=== PATIENT | female | born 1990 | race Caucasian/White ===

== ENCOUNTER 2020-10-14 21:00 | Inpatient (IN) | payer OTHER, SELFPAY ==
[2020-10-14] VITALS (50 sets, daily range): BP systolic 81–132; BP diastolic 41–97; PULSE 81–139; O2SAT 99–100; BMI 25.8
--- OUTSIDE RECORDS SUMMARY | 2020-10-14 21:24 | XMS_ITS | Encounter Summary ---
:1990 Author Care Team Providers Name Role Phone Loc Silva MD Primary Care Provider [phone] Reason for Visit OB visit Assessment and Plan 1. Routine care Discussion Note: None recorded.Patient educational handouts: No information available. Plan of Care Reminders Provider Appointments Ob Routine Kelly Jimenez, 10/15/2020 CNM 3:30PM ? Ob Routine Kirsten healy 10/22/2020 MD Neeraj 3:30PM ? Ob Routine Bozena Jimenez, 10/29/2020 CNM 3:30PM ? Ob Routine Bozena Jimenez, 11/05/2020 CNM 3:30PM Lab None ? ? recorded. Referral None ? ? recorded. Procedures None ? ? recorded. Surgeries None ? ? recorded. Imaging None ? ? recorded. Medications Name Start Date ? ? ? Medications Administered None recorded. Vitals Height Weight BMI Blood Pressure 5 ft 3.5 in 146 lbs 25.5 kg/m2 109/71 mm[Hg] Results Lab Results None recorded. Allergies
--- OUTSIDE RECORDS SUMMARY | 2020-10-14 21:24 | XMS_ITS | Encounter Summary ---
:1990 Author Care Team Providers Name Role Phone Loc Silva MD Primary Care Provider [phone] Reason for Visit OB visit 29w6d Assessment and Plan 1. Routine care Discussion [...] BMI Blood Pressure 5 ft 3.5 in 143 lbs 24.9 kg/m2 104/67 mm[Hg] Results Lab Results
--- OUTSIDE RECORDS SUMMARY | 2020-10-14 21:24 | XMS_ITS | Encounter Summary ---
:1990 Author Care Team Providers Name Role Phone Loc Silva MD Primary Care Provider [phone] Reason for Visit OB visit OB 33w3d EDC11/04/2020 Assessment and Plan Assessment Note Patient is _33__weeks . Dis cussed plan. 1. Routine care Discussion Note: None recorded.Patient [...]
--- OUTSIDE RECORDS SUMMARY | 2020-10-14 21:24 | XMS_ITS | Encounter Summary ---
:1990 Author Care Team Providers Name Role Phone Loc Silva MD Primary Care Provider [phone] Reason for Visit OB visit Assessment and [...] BMI Blood Pressure 5 ft 3.5 in 148 lbs 25.8 kg/m2 107/71 mm[Hg] Results Lab Results None recorded. Allergies
--- OUTSIDE RECORDS SUMMARY | 2020-10-14 21:24 | XMS_ITS | Encounter Summary ---
:1990 Author Care Team Providers Name Role Phone Loc Silva MD Primary Care Provider [phone] Reason for Visit OB visit OB [id number] EDC 11/04/2020 LMP 01/27/2021 Assessment and Plan Assessment Note Patient is __27_weeks . Dis cussed plan. 1. Routine care [...]
--- OUTSIDE RECORDS SUMMARY | 2020-10-14 21:24 | XMS_ITS ---
:1990 Author Care Team Providers Name Role Phone CHARISMA ALLEN MD Primary Care Provider [phone] Allergies Code Code System Name Reaction Severity Status Onset NKDA ? Notes: NO KNOWN ALLERGIES (InAct qian) Comment: Location: [facility]; Medications Name Status Start Date Stop Date ? ? Active ? Not available Solodyn 45 mg tablet,extended release Completed ? 03/03/2018 take 1 tablet by oral route every day Ziana 1.2 %-0.025 % topical gel Completed ? 03/03/2018 apply by topical route every day to the affected area(s) at be dtime Problems Name Status Onset Date Source ? 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 Histo ry Undetermined Significance on Cervical Papanicolaou Smear Screening for Malignant Neoplasm of Unknown 04/19/2011 History Cervix Specialized Medical Examination Unknown 04/19/[address] Concept Unknown 03/03/2018 History Gestation Period, 8 Weeks Unknown 05/26/2018 Histor y Detection Examination Unknown 05/26/2018 History Rubella Screening Status Unknown 06/15/2018 History Screening Unknown 06/15/2018 History Screening for Malformation Unknown 08/10/2018 History Normal in Multigravida Unknown 10/04/2018 History Gestation Period, 34 Weeks Unknown 11/20/2018 Histo ry Uterine Size for Dates Discrepancy Unknown 11/20/2018 History Lochia Finding Unknown 01/16/2019 History Active 05/09/2020 ?
[2020-10-14] MEDS: ONDANSETRON INJ 4 MG/2 ML VIAL IV PUSH (21:46)
[2020-10-14] MEDS: LACTATED RINGERS 1,000 ML 125 ML IV CONT ×2 (21:47→22:16)
[2020-10-14 21:57] LABS: Basophils Percent Auto 0.3 % (0.2-1.2); Eosinophils Absolute Auto 0.1 K/mm3 (0-0.3); Eosinophils Percent Auto 0.9 % (0-4.4); Hematocrit 33.7 % (37.0-47.0); Immature Granulocyte Absolute 0.05 K/mm3 (0.00-0.031); Immature Granulocyte Percent A 0.4 % (0-0.5); Immature Platelet Fraction Pct 10.4 % (0.9-11.2); Lymphocytes Absolute Auto 3.19 K/mm3 (0.9-3.2); Lymphocytes Percent Auto 27.8 % (18.3-44.2); Mean Corpuscular HGB Conc 32.6 g/dl (32-36); Mean Corpuscular Hemoglobin 29.5 pg (26-34); Mean Corpuscular Volume 90.3 fl (80-100); Mean Platelet Volume 11.7 fl (7.4-10.4); Monocytes Absolute Auto 0.8 K/mm3 (0.1-0.6); Monocytes Percent Auto 6.7 % (2.6-8.5); Neutrophils Absolute Auto 7.3 K/mm3 (1.3-6.7); Neutrophils Percent Auto 63.9 % (45.5-73.1); Platelet Count Result 150 k/mm3 (150-375); Red Blood Count 3.73 M/mm3 (4.2-5.4); Red Cell Distribution Width 13.2 % (11.5-14.5); White Blood Count 11.5 K/mm3 (4.5-10.0)
--- NOTE | 2020-10-14 21:59 | LDADM ---
This patient, Rebecca Carbone, was admitted to Labor/Delivery/Recovery 106 on 10/14/20 at 21:00. Plans for labor, pain management and were discussed with patient. Patient/family oriented to hospital policies and general routines including ID bracelet, bed and alarms, visiting hours, pain management, procedures, bathroom and other care routines, personal items, smoking policy, room service/diet and guest tray routines, infant security routines, and visiting hours. Patient/Family are encouraged to report perceived risks to care and to ask questions if they do not understand what they are told or what they should do. See OBIX for further documentation.
--- NOTE | 2020-10-14 22:31 | WPDOBADMIT ---
Obstetrics - Admit Note Admission Note: record reviewed. No pertinent additions to the history and/or any subsequent changes in the physical findings that are not consistent with the expected course of the were found. Additions to the history and/or subsequent changes in the physical findings follow. None. at 37 weeks in active labor. AROM clear. SVE /-2. FHT category 2. Anticipate . GBS neg.
[2020-10-15] VITALS (15 sets, daily range): BP systolic 74–121; BP diastolic 41–84; PULSE 64–133; RESP 16–18; TEMP 36.6–37.2; O2SAT 97–100
[2020-10-15] MEDS: OXYTOCIN 30 UNITS/NS 500 ML 30 UNITS/500 ML BAG 999 UNITS IV CONT (00:12)
--- NOTE | 2020-10-15 00:19 | PM.OBPRVD ---
OB - Delivery Note Procedure Delivery date: 10/15/20 Procedure: Intrapartal events: Precipitous Labor < 3 hours and Abruptio Placenta Delivery augmentation: rupture of membranes Delivery monitor: external FHT and external uterine Route of delivery: Laceration Description: None Specimen: Yes Quantitative Blood Loss (ml): 500 Anesthesia type: Epidural Disposition: floor Complications: placental abruption based on large amount of clots at delivery along with port wine fluid Narrative: With adequate expulsive efforts by the mother, the baby's head was delivered OA. The baby's anterior shoulder was delivered under the pubic symphysis without difficulty. The posterior shoulder and the rest of the baby delivered without difficulty. The was placed on the mothers chest and suctioned and stimulated. The cord was clamped and cut after 30 seconds. Mother and baby both stable. Baby Date of : 10/15/20 Time of : 00:07 Weeks of gestation at delivery: 37 Infant gender: Male Weight (pounds): 6 Weight (ounces): 11 presentation: vertex Placenta delivery description: Spontaneous cord vessel description: 3 Vessels and Delayed Cord Clamping score one minute: 9 score five minutes: 9
[2020-10-15] MEDS: OXYTOCIN 30 UNITS/NS 500 ML 30 UNITS/500 ML BAG 125 UNITS IV CONT (00:45)
[2020-10-15] MEDS: WITCH HAZEL 40 PADS 1 PAD TOPICAL (02:32)
[2020-10-15] MEDS: BENZOCAINE 20% AER SPR (*SP) 56 GM CAN 1 SPRAY TOPICAL (02:32)
--- NOTE | 2020-10-15 02:47 | OBPPTRN ---
Patient transferred to post room #287 via wheelchair. Support person present. Oriented to unit, room, information board, rooming in, admission packet and security measures. Patient verbalizes understanding.
[2020-10-15] MEDS: MULTIVIT/MIN/PREN/FOL AC/IRON TABLET 1 TAB PO (07:32)
[2020-10-15] MEDS: IBUPROFEN 600 MG TABLET PO (07:32)
[2020-10-15 10:31] LABS: Rapid Plasma Reagin Non-Reactive (NonReactive)
--- NOTE | 2020-10-15 12:25 | PC.NURSE ---
Mother called out for observation of feeding. is able to freely thrust tongue past gum ridge. Skin is intact on both nipples, no redness and bruising noted. Reviewed infant feeding cues, frequencies, duration of feedings, feeding elimination flow sheet, and signs of adequate intake. Demonstrated stimulation techniques to wake infant for feeding. Assisted with infant to breast. Reviewed positioning/alignment in cross cradle, holding breast in ?U? hold and guided asymmetrical latch on. Infant able to latch correctly. nursed eagerly, with steady draws and occasional swallowing with freq pausing. Suggested mother stimulate while feeding to increase stimulate, increase intake and to assist with maintaining deep latch. Reviewed signs of a correct latch, effective nursing and suck swallow ratio. Infant was able to maintain latch without discomfort to mother. Demonstrated how to adjust latch more deeply while feeding as needed. Nipple care reviewed of lanolin after feedings, warm compresses and gel pads as needed. Instructed mother to call out for RN assistance if she is unable to latch infant for feeding or she has discomfort with nursing.
--- NOTE | 2020-10-15 21:15 | WPDOBADMIT ---
Obstetrics - Admit Note Admission Note: record reviewed. No pertinent additions to the history and/or any subsequent changes in the physical findings that are not consistent with the expected course of the were found. Bp elevated in office 130-140/90-100, here 130/90, PCR 0.8 admit for MIL due to preeclampsia, plan cervadil Additions to the history and/or subsequent changes in the physical findings follow. None.
[2020-10-16] VITALS: BP 121/75; PULSE 65; RESP 16; TEMP 36.6; O2SAT 100
[2020-10-16 05:12] LABS: Hematocrit 33.5 % (37.0-47.0); Hemoglobin 10.7 g/dL (12.0-15.0)
[2020-10-16 08:20] VITALS: BP 114/75; PULSE 68; RESP 16; TEMP 37; O2SAT 98
--- NOTE | 2020-10-16 08:43 | PM.OBPNVD ---
OB - PN: Subj Subjective Date/time seen: 10/16/20 08:43 Patient comments: no complaints, pain well controlled, incisional pain, tolerating diet and flatus present OB - PN: Obj Data Labs CBC & Chem 7: 10/16/20 04:05 Labs: Laboratory Results - last 24 hr 10/14/20 10/16/20 21:43 04:05 Hgb 10.7 L Hct 33.5 L RPR Non-reactive OB - PN A/P Plan day: 1 Plan: routine care Comments: No problems, routine care Time Spent With Patient Time: Total time spent is greater than 50% in coordination of care (as documented) at patient's floor/unit and/or counseling patient: Exam Const: General: comfortable, no acute distress and alert Resp: Effort & Inspection: normal respiratory effort Auscultation: no crackles, no rales and no rhonchi Cardio: Rate: regular rate Heart sounds: no click, no murmurs and no rubs GI: Inspection: non-distended GI Palp: No Tenderness to palpation present (GI) Auscultation: normal bowel sounds Other: Incision - CDI Extrem: General: normal to inspection, no pedal edema and no calf tenderness
--- NOTE | 2020-10-16 08:45 | PC.NURSE ---
Observed mother is able to independently latch with appropriate positioning/alignment. She denies any nipple discomfort, is feeding as required and waking infant to feed if needed. has had at least 8 effective feedings in the past 24 hours, and is currently meeting outcomes for weight, output, jaundice and feeding frequencies. Mother states she feels confident to continue effective at home. Stressed waking infant for feeding every three hours, feeding before if feeding cues noted. Reviewed transition to breast milk, signs of adequate intake, and engorgement/relief. Instructed to call ICP if intake/output less than required. Reviewed regular medications mother is taking. Information provided per Kassandra. Reviewed community resources on the [facility] website and in the Mom/Baby guide. Information on outpatient services provided. Mother has no further questions at this time.
[2020-10-16] MEDS: IBUPROFEN 600 MG TABLET PO (09:41)
[2020-10-16] MEDS: DOCUSATE SODIUM 100 MG CAPSULE PO (09:41)
[2020-10-16] MEDS: MULTIVIT/MIN/PREN/FOL AC/IRON TABLET 1 TAB PO (09:42)
--- NOTE | 2020-10-16 12:14 | WPDANLDPN2 ---
Anes-Prog Note L&D Date/Time: 10/16/20 12:14 Comfortable throughout: labor and delivery Neuraxial method: epidural Epidural/Spinal procedure site: clean & non-tender Neuro status: Neuro function grossly intact. Cardiovascular status: normal Respiratory status: normal Airway patency: baseline Mental status: baseline Post-Op hydration status: normal Vital Signs: Last Vital Signs Temp 37.0 C 10/16/20 08:20 Pulse 68 10/16/20 08:20 Resp 16 10/16/20 08:20 BP 114/75 10/16/20 08:20 Pulse Ox 98 10/16/20 08:20 Pain score (VAS): 04/13 Post-procedural complaints: none Patient feedback: Patient satisfied with anesthetic care.
[2020-10-17 08:02] VITALS: BP 110/62; PULSE 79; RESP 16; TEMP 36.5; O2SAT 100
--- NOTE | 2020-11-10 08:09 | PM.OBDSVD ---
DS: Admitting Diagnosis Admitting Diagnosis term OB - DS: Summary OB Procedures : None OB Procedures Intrapartum: Spontaneous Vag Delivery OB Procedures: : None Time Spent with Patient Time attestation: Total time spent providing and/or coordinating discharge services: DS: Data Data Completed and Pending Completed studies during hospitalization: Pending at discharge 10/15/20 00:11 Surgical [PTH] Routine Discharge Plan Discharge Consulting providers: Bozena Jimenez Discharging Clinician: Alec Garcia Patient Disposition: Home, Self-Care Activity: pelvic rest Diet: regular Discharge Instructions: Education: Mom and Baby Guide Given to: Mother Follow-Up: Call your delivering provider's office for an appointment to be seen in: 4 Weeks [facility]. Appointment Date/Time: October 17, 2020 at 8:00 am What to expect at your follow-up visit: Blood Pressure Check Physical Assessment Call [phone] if you are unable to keep your appointment time. BREAST CARE: * Wear a snug supportive bra. * For engorgement discomfort: Breast Feeding: * Apply warm moist washcloths * Express milk as needed to relieve engorgement * Wear loose clothing * For sore nipples: * Identify correct latch-on * Apply warm moist washcloths before and after nursing * Air dry nipples after nursing * May apply Lansinoh cream to nipples EPISIOTOMY/PERINEAL CARE: * Until bleeding stops, use your ricardo bottle after urinating * Change your pad frequently throughout the day * You may take sitz baths several times a day (fill your bathtub with warm water and soak for 20 minutes.) Do NOT bathe in the water * No tub baths until seen by your physician - You may shower ACTIVITY: * Rest as much as possible. * Do not exercise or lift anything heavier than your baby (such as laundry or other children.) * Avoid stairs or driving as much as possible. * Do not put anything into the vagina. No douching, tampons, or sexual activity until seen by physician. NOTIFY PHYSICIAN IF YOU HAVE ANY QUESTIONS OR IF ANY OF THE FOLLOWING SYMPTOMS OCCUR: * If your perineum becomes red, swollen, or more painful than what you have experienced in the hospital. * If your vaginal bleeding becomes foul smelling. * If your vaginal bleeding becomes more heavy than a period or if your bleeding changes from pink to bright red. However, you may pass an occasional walnut-sized clot once or twice for the first week . * If you experience a sharp, shooting pain in you calves. * If you discover a hard, reddened area on your breast or if you experience flu-like symptoms. *Temperature of 100.4 or higher DIET: * Eat regular, well-balanced meals. * Drink plenty of fluids daily. If , drink to thirst. Stand Alone Forms: General Discharge Information Follow-up/Referrals: Kirsten Pickard MD [Physician] - Discharge Medications: Continued prenat.vits,alex,[id number] Tablet 1 tablet PO DAILY RF: 0 Date of admission: 10/14/20 21:00 Primary Care Provider: Shira,Loc Ramirez Admitting Provider: Kirsten Pickard Attending physician on admission: Alec Garcia Condition: Stable
== END 2020-10-16 15:47 | disposition home or self-care (01) | DRG 807 ==
LOC: ANHLDR 21:34 → ANHOB2 10-16 13:25 → ANHLDR 10-17 13:07 → ANHOB2 10-17 13:07
PROVIDERS: Admitting Provider Obstetrics & Gynecology; PCP Family Medicine; Visit Provider Obstetrics & Gynecology
DX: O14.94 Unspecified pre-eclampsia, complicating childbirth (principal); Z37.0 Single live birth; Z3A.37 37 weeks gestation of pregnancy; O45.93 Premature separation of placenta, unspecified, third trimester; O62.3 Precipitate labor
CPT/HCPCS: 36415; 85014; 85018; 85025; 85055; 86592; 86850; 86900; 86901; 88307; A9270; J2405; J2590; J2795; J7120